=== PATIENT | female | born 1985 | race African-American/Black ===

== ENCOUNTER 2020-12-11 20:45 | Emergency (ER) | payer MEDICAID ==
[~2020-12-11] VITALS: Ht 175.3 cm; Wt 59.0 kg
[2020-12-11 20:58] VITALS: BP 155/109; Ht 175.3 cm; Wt 59.0 kg
== END 2020-12-11 23:25 | disposition home or self-care (01) ==
LOC: ED 20:45
DX: L93.0 Discoid lupus erythematosus (principal); F11.20 Opioid dependence, uncomplicated; M79.7 Fibromyalgia; M19.90 Unspecified osteoarthritis, unspecified site; Z20.822 Contact with and (suspected) exposure to COVID-19; Z98.890 Other specified postprocedural states
CPT/HCPCS: J1100; J1885; U0003